=== PATIENT | male | born 1950 | race Caucasian/White ===

== ENCOUNTER 2018-05-14 11:09 | Emergency (ER) | payer OTHER ==
--- NOTE | 2018-05-14 12:32 | EDPHY ---
H & P Stated Complaint: fell while walking dog this morning, multiple complaints Time Seen by Provider: 05/14/18 12:30 HPI/ROS: CHIEF COMPLAINT: Mechanical fall on Eliquis HISTORY OF PRESENT ILLNESS: 68-year-old male history of recurrent DVT, history of Parkinson's, sustained a mechanical fall this morning he was walking his dog impacted his right hand and right forehead as well as left knee. He was seen at [facility] referred to the ER for evaluation particularly for concerns over head injury. He does describe this as a true mechanical incident when he tripped in his garden. No loss of consciousness. No prolonged periods of mobility on the ground. Tetanus up-to-date. PRIMARY CARE PROVIDER: Dr. Maksim Momin REVIEW OF SYSTEMS: A ten point review of systems was performed and is negative with the exception of the items mentioned in the HPI PAST MEDICAL/SURGICAL HISTORY: Daily Eliquis. History of recurrent DVT. History of Parkinson's disease. SOCIAL HISTORY: denies alcohol use at time of incident PHYSICAL EXAM 1) GENERAL: Well-developed, well-nourished, alert and oriented. Appears to be in no acute distress. Answering questions appropriately. 2) HEAD: Normocephalic, right frontal abrasion. 3) HEENT: Pupils equal, round, reactive to light bilaterally. Negative Horners. Nasopharynx, oropharynx, clear. No deformity or angulation of nose. No septal hematoma. No rhinorrhea. No oral trauma. Ears bilaterally with normal tympanic membranes. No hemotympanum. No fluid or blood in the external auditory canal. No raccoon eyes. No Hare sign. Teeth are normally aligned with no gross malocclusion, TMJ bilaterally nontender, facial bones nontender including the zygomatic arch, maxilla mandible. 4) NECK: No cervical collar is on. Posterior cervical spine is nontender, no stepoff, no effusion. Full range of motion which does not elicit any midline cervical spine pain, no posterior midline tenderness, no step-off. 5) LUNGS: Clear to auscultation bilaterally, no wheezes, no rhonchi, no retractions. No obvious signs of trauma. No chest wall pain. No flaring, no grunting. Moving symmetrically. No crepitus. 6) HEART: [Regular rate and rhythm, 7) ABDOMEN: No guarding, no rebound, no focal tenderness, no peritoneal signs, no signs of trauma, no ecchymosis 8) MUSCULOSKELETAL: Left lower extremity: Left anterior knee abrasion with full pain-free range of motion. Right upper extremity: Tender to palpation 3rd 4th 5th metacarpal with soft tissue swelling intact skin. No tenting. Neurovascular intact distally with brisk capillary refill. Proximally nontender including wrist. No anatomic snuffbox pain. Otherwise, Moving all extremities, no focal areas of tenderness , no obvious trauma. 9) BACK: No midline vertebral tenderness, no fluctuance, no step-off, no obvious trauma, no visual or palpable abnormality. 10) SKIN: Right frontal abrasion DIFFERENTIAL DIAGNOSIS: Not necessarily in any particular order, my differential diagnosis includes, but is not limited to, concussion, skull fracture, intraparenchymal contusion, subarachnoid, subdural and epidural hematoma. The patient understands that this diagnosis is provisional and can never be 100% accurate. - Medical/Surgical History Hx Asthma: No Hx Chronic Respiratory Disease: No Hx Diabetes: No Hx Cardiac Disease: No Hx Renal Disease: No Hx Cirrhosis: No Hx Alcoholism: No Hx HIV/AIDS: No Hx Splenectomy or Spleen Trauma: No Other PMH: parkinsons, blood clots - Social History Smoking Status: Former smoker Constitutional: Initial Vital Signs Temperature (C) 36.6 C 05/14/18 11:15 Heart Rate 70 05/14/18 11:15 Respiratory Rate 18 05/14/18 11:15 Blood Pressure 160/86 H 05/14/18 11:15 O2 Sat (%) 97 05/14/18 11:15 O2 Delivery Mode Room Air Allergies/Adverse Reactions: Penicillins Allergy (Unknown, Verified 05/14/18 11:14) Home Medications: Medication Instructions Recorded Carbidopa-Levo 10-100 mg Odt 05/14/18 Eliquis 05/14/18 Xadago 05/14/18 oxyCODONE/APAP 5/325 [Percocet 1 tab PO Q6 #10 tab 05/14/18 5/325] Medical Decision Making - Diagnostics Imaging Results: Imaging Impressions Hand X-Ray 05/14/18 11:45 Impression: 1. Fourth and fifth ray fractures. 2. Possible small chips off the distal radial ulnar joint and lunate. 2. Right Hand, Three Views History: Pain post trauma. Findings: There are comminuted fractures of the fourth and fifth metacarpals sparing the base and head is of those bones. There is approximately 5 mm of mild shortening of the fifth metacarpal. There is a transverse nonangulated fracture coursing through the proximal metaphysis of the fifth proximal phalanx. There is no significant angulation. The carpal metacarpal and metacarpal phalangeal joints remain normally aligned. Impression: Fourth and fifth metacarpal and fifth proximal phalangeal fractures. Wrist X-Ray 05/14/18 11:45 Impression: 1. Fourth and fifth ray fractures. 2. Possible small chips off the distal radial ulnar joint and lunate. 2. Right Hand, Three Views History: Pain post trauma. Findings: There are comminuted fractures of the fourth and fifth metacarpals sparing the base and head is of those bones. There is approximately 5 mm of mild shortening of the fifth metacarpal. There is a transverse nonangulated fracture coursing through the proximal metaphysis of the fifth proximal phalanx. There is no significant angulation. The carpal metacarpal and metacarpal phalangeal joints remain normally aligned. Impression: Fourth and fifth metacarpal and fifth proximal phalangeal fractures. Head CT 05/14/18 12:37 Impression: 1. No posttraumatic intracranial abnormality identified. 2. Small right posterior frontal scalp nodule. Results called to DONNA De La Garza at 1:12 PM General information for patients regarding this examination can be found at [email or web address]. If you have questions or comments about this report, please contact me at [phone] (hospital) or [phone] (cell). Images reviewed myself Procedures: Procedure: Splint Ortho Glass ulnar gutter splint was applied by ER ceramics technician. After application of the splint I returned and re-examined the patient. The splint was adequately immobilizing the joint and distal to the splint the patient's circulation and sensation were intact. Patient shows no signs of compartment syndrome. Was given orthopedic precautions. ED Course/Re-evaluation: 12:44 p.m.: Head CT ordered in this patient for trauma for the following indication: Greater than 65 years old, anticoagulated. He is noted to have fractures of his hand which will be splinted as well and he will need follow-up with orthopedics. He will be given this referral information. 1:17 p.m.: Re-evaluation, discussed his head CT imaging results which are negative for posttraumatic sequelae. Plan will be discharge home with usual customary head injury precautions and orthopedic precautions. Both he and feel comfortable being discharged. I saw this patient independently based on established practice protocols. Care of patient under supervision of secondary supervising physician Dr Carr . Departure - Departure Disposition: Home, Routine, Self-Care Clinical Impression: Abrasion, left knee, initial encounter Finger fracture, right Qualifiers: Encounter type: initial encounter Finger: little finger Fracture type: closed Phalanx: proximal Fracture alignment: nondisplaced Qualified Code(s): S62.646A - Nondisplaced fracture of proximal phalanx of right little finger, initial encounter for closed fracture Fracture of metacarpal of right hand, closed Qualifiers: Encounter type: initial encounter Metacarpal bone: third Metacarpal location: base Fracture alignment: nondisplaced Qualified Code(s): S62.342A - Nondisplaced fracture of base of third metacarpal bone, right hand, initial encounter for closed fracture Head injury due to trauma Qualifiers: Encounter type: initial encounter Qualified Code(s): S09.90XA - Unspecified injury of head, initial encounter Forehead abrasion Qualifiers: Encounter type: initial encounter Qualified Code(s): S00.81XA - Abrasion of other part of head, initial encounter Condition: Good Instructions: Hand Fracture (ED), Head Injury (ED) Additional Instructions: Return to the ER immediately if you experience discoloration, have worsening pain, numbness, tingling, or any other symptoms that concern you. If you received x-rays in the emergency department today, be advised, that ligamentous , tendon, muscular, and other non-bony injury cannot be fully ruled out. Try to keep your affected extremity elevated above the level of your chest, and keep cold packs on the affected area, for the next 48 hours. ALTHOUGH THERE IS NO EVIDENCE OF SERIOUS HEAD INJURY AT THIS TIME, DELAYED SIGNS CAN APPEAR 24 TO 48 HOURS AFTER INJURY. PLEASE RETURN TO THE EMERGENCY DEPARTMENT (ED) IMMEDIATELY IF YOU HAVE INCREASED HEADACHE, PERSISTENT HEADACHE , VOMITING, WEAKNESS, CONFUSION OR VISUAL PROBLEMS. WE RECOMMEND THAT YOU DO NOT RESUME CONTACT SPORTS OR ACTIVITIES THAT TAKE COORDINATION OR BALANCE SUCH SKIING OR RIDING A BICYCLE UNTIL CLEARED TO DO SO BY YOUR DOCTOR OR BY A NEUROLOGIST. Referrals: Kamla Tse MD [Medical Doctor] - 2-3 days, call for appt. Prescriptions: oxyCODONE/APAP 325 [Percocet 5/325] 1 tab PO Q6 #10 tab
[2018-05-14] MEDS ORDERED: OXYCODONE/APAP 5/325 TAB PO ONE (13:16)
[2018-05-14 13:55] VITALS: BP 138/89
== END 2018-05-14 13:55 | disposition home or self-care (01) ==
DX: S62.646A Nondisplaced fracture of proximal phalanx of right little finger, initial encounter for closed fracture (principal); S62.342A Nondisplaced fracture of base of third metacarpal bone, right hand, initial encounter for closed fracture; S00.81XA Abrasion of other part of head, initial encounter; S80.212A Abrasion, left knee, initial encounter; G20 Parkinson's disease; Z87.891 Personal history of nicotine dependence; W01.198A Fall on same level from slipping, tripping and stumbling with subsequent striking against other object, initial encounter; Y99.8 Other external cause status; Y93.K1 Activity, walking an animal

== ENCOUNTER → 2019-01-10 | Outpatient (CLI) | payer OTHER ==
[~2019-01-10] MED LIST: GADOBUTROL 10 ML VIAL IVP ONE
== END ==
LOC: FIMAGING 07:47
PROVIDERS: ATTEND Family Medicine
DX: K76.9 Liver disease, unspecified (principal)
CPT/HCPCS: 74183; A9585; 82565-PO